=== PATIENT | male | born 1995 | race Caucasian/White ===

== ENCOUNTER 2017-07-17 10:29 | Emergency (ER) | payer OTHER ==
[2017-07-17 14:04] VITALS: BP 115/65
--- NOTE | 2017-07-17 14:23 | ED ---
Dylan Woodson Stephanie, scribed for Gibson Boswell on 07/17/17 at 1312 . Respiratory - HPI Summary HPI Summary: The pt is a 21 y/o M presenting to the ED with c/o cough that began a few days ago. Symptoms include fever, chest congestion and sore throat. The pt denies SOB and CP. He was recently dx with PNA at [facility]. The pt did blood work at [facility] and is still waiting for results. He received a CXR at [facility] and stated they are concerned for blood clot. The pt was given 2 abx but has not begun taking the abx because he is waiting for a second opinion. - History of Current Complaint Chief Complaint: EDGeneral Stated Complaint: DIAGNOSED PNEUMONIA Time Seen by Provider: 07/17/17 12:33 Hx Obtained From: Patient Onset/Duration: Gradual Onset, Lasting Days - 2, Still Present Timing: Constant Current Severity: Mild Pain Intensity: 0 Sputum Amount: Small Aggravating Factor(s): Nothing Alleviating Factor(s): Nothing Associated Signs and Symptoms: Fever - Allergy/Home Medications Allergies/Adverse Reactions: Allergies Allergy/AdvReac Type Severity Reaction Status Date / Time No Known Allergies Allergy Verified 07/17/17 10:30 Home Medications: Home Medications NK [No Home Medications Reported] 07/17/17 [History Confirmed 07/17/17] PMH/Surg Hx/FS Hx/Imm Hx Sensory History: Denies: Hx Legally Blind EENT History: Denies: Hx Deafness - Surgical History Surgery Procedure, Year, and Place: none Infectious Disease History: No Infectious Disease History: Denies: Traveled Outside the [place] in Last 30 Days - Family History Known Family History: Negative: Renal Disease - Social History Occupation: Student Lives: Dormitory/Roommates Alcohol Use: Rare Hx Substance Use: No Substance Use Type: Reports: None Hx Tobacco Use: No Smoking Status (MU): Never Smoked Tobacco Have You Smoked in the Last Year: No Review of Systems Positive: Fever Positive: Sore Throat Negative: Chest Pain Positive: Cough, Other - chest congestion. Negative: Shortness Of Breath All Other Systems Reviewed And Are Negative: Yes Physical Exam - Summary Physical Exam Summary: Appearance: Well appearing, no pain distress Skin: warm, dry, reflects adequate perfusion Head/face: normal Eyes: EOMI, FRANCIS[place] ENT: normal Neck: supple, non-tender Respiratory: CTA, breath sounds present Cardiovascular: tachycardia, regular rhythm, pulses symmetrical Abdomen: non-tender, soft Bowel: present Musculoskeletal: normal, strength/ROM intact Neuro: normal, sensory motor intact, A&Ox3 Triage Information Reviewed: Yes Vital Signs On Initial Exam: Initial Vitals Temp Pulse Resp BP Pulse Ox 97.9 F 110 20 140/79 98 07/17/17 10:31 07/17/17 10:31 07/17/17 10:31 07/17/17 10:31 07/17/17 10:31 Vital Signs Reviewed: Yes Diagnostics - Vital Signs Vital Signs Temp Pulse Resp BP Pulse Ox 07/17/17 12:29 101 14 120/65 99 07/17/17 12:27 10 07/17/17 10:31 97.9 F 110 20 140/79 98 - Laboratory Lab Statement: Any lab studies that have been ordered have been reviewed, and results considered in the medical decision making process. Re-Evaluation - Re-Evaluation First Eval Re-Evaluation Time: 14:02 Change: Improved - The pt is comfortable and not experiencing SOB. ED physician advised the pt to take his prescribed abx and to follow up with [facility] on Friday. Disposition - Course Course Of Treatment: The pt is a 21 y/o M presenting to the ED with c/o cough that began a few days ago. Symptoms include fever, chest congestion and sore throat. The pt denies SOB and CP. He was recently dx with PNA at [facility]. ED physician spoke to Dr. Rosales at [facility]. ED physician informed the pt to take the abx prescribed to him and to follow up with [facility] on Friday. - Diagnoses Provider Diagnoses: PNA (pneumonia) Discharge - Sign-Out/Discharge Documenting (check all that apply): Discharge/Admit/Transfer - Discharge - Discharge Plan Condition: Stable Disposition: HOME Patient Education Materials: Pneumonia (ED) Referrals: [facility] - Azar NEGRO [Primary Care Provider] - 4 Days Additional Instructions: Continue to take abx prescribed to you by [facility]. Return to the ED for any new or worsening symptoms. The documentation as recorded by the Dylan gibbons Stephanie accurately reflects the service I personally performed and the decisions made by , Gibson Boswell.
== END 2017-07-17 14:16 | disposition home or self-care (01) ==
LOC: ED 10:29
DX: J18.9 Pneumonia, unspecified organism (principal); R05 Cough; R50.9 Fever, unspecified; J02.9 Acute pharyngitis, unspecified; R09.89 Other specified symptoms and signs involving the circulatory and respiratory systems
CPT/HCPCS: 99282